=== PATIENT | female | born 1975 | race Caucasian/White ===

== ENCOUNTER 2018-07-30 16:00 | Outpatient (CLI) | payer OTHER ==
[2018-07-30 18:05] LABS: Anion Gap 12 mmol/L (10-20); BUN (Urea Nitrogen) 11 mg/dL (7.0-18.7); Calc. Creatinine Clearance 0 mL/min (70-130); Calcium 9.4 mg/dL (7.8-10.44); Carbon Dioxide 26 mmol/L (22-29); Chloride 103 mmol/L (98-107); Estimated GFR-MDRD Greater than 90; Glucose 80 mg/dL (70-105); Sodium 137 mmol/L (136-145)
== END 2018-07-30 16:01 | disposition home or self-care (01) ==
LOC: LABBT 16:00
PROVIDERS: ATTEND Surgery
DX: Z01.812 Encounter for preprocedural laboratory examination (principal); R22.0 Localized swelling, mass and lump, head
CPT/HCPCS: 80048

== ENCOUNTER 2018-08-08 06:11 | Day surgery (SDC) | payer OTHER ==
[2018-07-30 17:03] VITALS: BMI 34.7
[2018-08-08] MEDS ORDERED: Propofol 500 MG/50 ML VIAL ONE (06:38)
[2018-08-08] MEDS ORDERED: Fentanyl 100 MCG/2 ML VIAL ONE (06:38)
[2018-08-08] MEDS ORDERED: CEFAZOLIN 2 GM/50 ML BAG ONE (06:44)
[2018-08-08] MEDS ORDERED: PROPOFOL 200 MG/20 ML VIAL ONE (06:51)
[2018-08-08] MEDS ORDERED: PHENYLEPHRINE-NS 100 MCG/ML 10 ML SYRINGE ONE (06:51)
[2018-08-08] MEDS ORDERED: Ondansetron PF 4 MG/2 ML Vial ONE (06:51)
[2018-08-08] MEDS ORDERED: Dexamethasone 20 MG/5 ML VIAL ONE (06:51)
[2018-08-08] MEDS ORDERED: Ketorolac Tromethamine 30 MG/ML VIAL ONE (06:51)
[2018-08-08] MEDS ORDERED: ePHEDrine/0.9% NaCl/PF SYRINGE 50 mg/10 ml ONE (06:51)
[2018-08-08] MEDS ORDERED: Midazolam HCl 2 mg/2 ml Vial ONE (07:12)
[2018-08-08 07:20] LABS: #Basophils 0.1 thou/uL (0.0-0.2); #Eosinphils 0.3 thou/uL (0.0-0.7); #Lymphocytes 3.5 thou/uL (1.20-3.40); #Monocytes 0.8 thou/uL (0.11-0.59); #Neutrophils 4.6 thou/uL (1.40-6.50); %Basophils 1.2 % (0.0-1.0); %Eosinophils 3.3 % (0.0-10.0); %Lymphocytes 37.2 % (21.0-51.0); %Neutrophils 49.3 % (42.0-75.0); Hemoglobin 14.3 g/dL (12.0-16.0); Mean Corpuscular Volume 88.4 fL (78.0-98.0); Mean Platelet Volume 7.9 fL (7.4-10.4); Platelet Count 300 thou/uL (130-400); RBC Distribution Width 12.6 % (11.5-14.5); Red Blood Cell (RBC) Count 4.78 mill/uL (4.20-5.40); White Blood Cell (WBC) Count 9.3 thou/uL (4.8-10.8)
[2018-08-08] MEDS ORDERED: Famotidine/PF 20 mg/2ml Vial ONE (07:22)
[2018-08-08] MEDS ORDERED: Bacitracin Zinc Ointment 30 gm TUBE ONE (07:29)
[2018-08-08] MEDS ORDERED: Bupivacaine/Epinephrine 0.25% 30 ML VIAL ONE (07:29)
[2018-08-08] MEDS ORDERED: Lidocaine 2% w/Epinephrine 1:200K 20 ML VIAL ONE (07:29)
[2018-08-08] MEDS ORDERED: Lidocaine 2% PF 5 ML VIAL ONE (07:30)
--- NOTE | 2018-08-08 13:15 | PDOC.OP ---
Operative Note - Operative Note Operative Note: PROCEDURE: Excision of scalp cyst 3 DATE OF PROCEDURE: 08/08/28 SURGEON: Paola Grossman M.D. PREOPERATIVE DIAGNOSES: Scalp cyst 3 POSTOPERATIVE DIAGNOSIS: Scalp cyst 3 HISTORY: Patient with several slowly enlarging cysts on her scalp. One of them has been infected and had to be drained in the past. She desires excision of all 3 for symptomatic purposes. PROCEDURE IN DETAIL: After informed consent was obtained the patient was taken to the operating room and placed in the supine position. General anesthesia was administered by LMA and she was prepped and draped in standard sterile fashion. The largest skin cyst on the top of her scalp was excised first. An elliptical incision was made including the central punctum and some of the redundant skin over the protuberant mass. The cyst was dissected free circumferentially and excised. Bovie electrocautery was used to obtain hemostasis. The subcutaneous tissues were reapproximated with a 3-0 Vicryl suture and the skin was closed with interrupted vertical mattress nylon sutures. Bacitracin was placed and attention turned to the 2 left postauricular cysts. These were excised and dressed in an identical manner. The patient was taken to recovery in good condition. Estimated blood loss was minimal. There were no complications. Specimens are scalp cysts 3
--- NOTE | 2018-08-18 06:11 | PQF ---
[facility] POST DISCHARGE CLINICAL DOCUMENTATION IMPROVEMENT CLARIFICATION FORM l Todays Date: 08/16/18 l Patients Name ARELY WELDON l l Admit Date 08/08/18 l Disch Date 08/08/18 Warehouse Distribution Manager Name Brien Cooley Email: [email or web address] Cell: [phone] To be completed by Warehouse Distribution Manager: Present Clinical Indicators - Signs / Symptoms Results and Location in Medical Record [ ] Documentation of: [ ] [ ] Documentation of: [ ] [ ] Documentation of: [ ] [ ] Documentation of: [ ] [ ] Risks [ ] [ ] [ ] Treatment [ ] PILAR CYST SUPERIOR SCALP PILAR CYST L POSTAURICULAR SUPERIOR SCALP EPIDERMAL INCLUSION CYST - L POSTAURICULAR INFERIOR SCALP QUERY FOR SIZE OF ALL 3 EXCISED LESIONS WITH RESPECTIVE MARGINS [ ] [ ] To be completed by Physician: MACHO SUTHERLAND The documentation in this patients record requires clarification to ensure coding compliance and accuracy. Check the appropriate box and include in your discharge summary. [ ] [ ] [ ] [ ] Please check this box if this does not apply to this patient [ ] Unable to determine [ ] Other diagnosis: Review the following information and exercise your independent professional judgment in responding to the clarification. Based upon the clinical findings, risk factors, and treatment, please clarify if you are treating one of the above probable or suspected diagnoses. Physician Signature: Date Time MTDD
== END 2018-08-08 11:03 | disposition home or self-care (01) ==
LOC: SDC 06:11
PROVIDERS: ATTEND Surgery
PROC: 0HB0XZZ Excision of Scalp Skin, External Approach (ICD-10-PCS; principal; 2018-08-08)
DX: L72.11 Pilar cyst (principal); L72.0 Epidermal cyst; G43.909 Migraine, unspecified, not intractable, without status migrainosus; Z79.899 Other long term (current) drug therapy; Z88.2 Allergy status to sulfonamides; Z88.8 Allergy status to other drugs, medicaments and biological substances
CPT/HCPCS: 85025; 88304; J1100; J1885; J2001; J2250; J2405; J2704; J3010; S0028

== ENCOUNTER 2019-06-01 12:53 | Outpatient (CLI) | payer OTHER ==
--- NOTE | 2019-06-01 13:48 | MMO ---
Bilateral MAMMO Bilat Screen [facility]. CLINICAL HISTORY: Patient is 44 years old and is seen for screening. The patient has the following liver. The patient has no personal history of cancer. VIEWS: The views performed were: bilateral craniocaudal with tomosynthesis and bilateral mediolateral oblique with tomosynthesis. FILMS COMPARED: The present examination has been compared to prior imaging studies performed at [facility] on 08/08/2011 and 03/31/2015. This study has been interpreted with the assistance of computer-aided detection. MAMMOGRAM FINDINGS: There are scattered fibroglandular densities. There are no suspicious masses, suspicious calcifications, or new areas of architectural distortion. IMPRESSION: THERE IS NO MAMMOGRAPHIC EVIDENCE OF MALIGNANCY. A ROUTINE FOLLOW-UP MAMMOGRAM IN 1 YEAR IS RECOMMENDED. THE RESULTS OF THIS EXAM WERE SENT TO THE PATIENT. ACR BI-RADS Category 1 - Negative MAMMOGRAPHY NOTE: 1. A negative mammogram report should not delay a biopsy if a dominant of clinically suspicious mass is present. 2. Approximately 10% to 15% of breast cancers are not detected by mammography. 3. Adenosis and dense breasts may obscure an underlying neoplasm. Reported by: JACK PEACOCK MD Electonically Signed: [id number]
== END 2019-06-01 12:54 | disposition home or self-care (01) ==
LOC: BICMAMMO 12:53
PROVIDERS: ATTEND Physician Assistant
DX: Z12.31 Encounter for screening mammogram for malignant neoplasm of breast (principal)
CPT/HCPCS: 77063; 77067